=== PATIENT | female | born 1975 | race Caucasian/White ===

== ENCOUNTER → 2022-03-25 13:05 | Outpatient (BNVA) | payer MEDICARE, MEDICAID, SELFPAY | PROVIDERS: PCP Student in an Organized Health Care Education/Training Program; Visit Provider Nurse Practitioner Family | DX: R40.0 Somnolence (principal); R06.81 Apnea, not elsewhere classified; R06.83 Snoring | CPT/HCPCS: 99202 ==

== ENCOUNTER → 2022-05-27 11:39 | Outpatient (REF) | payer MEDICARE, MEDICAID, SELFPAY | LOC: HO.SL 11:39 | PROVIDERS: Visit Provider Nurse Practitioner Family | DX: G47.10 Hypersomnia, unspecified (principal); R06.81 Apnea, not elsewhere classified; R06.83 Snoring | CPT/HCPCS: 95806 ==